=== PATIENT | female | born 1970 | race Caucasian/White ===

== ENCOUNTER 2025-01-11 23:19 | Emergency (ER) | payer OTHER ==
[~2025-01-11] VITALS: Ht 162.5 cm; Wt 91.6 kg
[2025-01-11] MEDS ORDERED: CETIRIZINE HYDR10 MG PO (23:50)
[2025-01-11] MEDS ORDERED: MONTELUKAST SOD10 MG PO (23:50)
[2025-01-12] MEDS ORDERED: SODIUM CHLORIDE 0.9% 1,000 ML IV ONE ×2 (00:25→05:30)
[2025-01-12 00:53] LABS: MEAN CELL VOLUME 87.4 fl (81.0-99.0); MEAN CORPUSCULAR HGB 28.3 pg (27.0-31.0); MEAN PLATELET VOLUME 13.3 fl (9.6-12.3); NUCLEATED RED BLOOD CELL 0.0 % (0.0-0.0); NUCLEATED RED BLOOD CELL 0.0 10*3/uL (0.0-0.0); PLATELET COUNT AUTOMATED 171 10*3/uL (130-400); RED CELL DISTRI WIDTH 14.8 % (0-14.5)
[2025-01-12] MEDS ORDERED: Ondansetron Hydrochloride 4 MG/2 ML VIAL IV ONE (00:55)
[2025-01-12 01:10] LABS: BUN 15 mg/dl (9-23)
[2025-01-12 01:13] LABS: MANUAL DIFF REFLEX YES
[2025-01-12 01:15] LABS: PLATELET SUFFICIENCY NORMAL (NORMAL)
[2025-01-12 01:20] LABS: BILIRUBIN 1+ (Negative); BLOOD 2+ (Negative); CLARITY Cloudy (Clear); COLOR Dark Yellow (Yellow); KETONE 2+ (Negative); LEUKO ESTERASE Trace (Negative); NITRITE Negative (Negative); PH 5.0 (4.5-8.0); SPECIFIC GRAVITY >= 1.030 (1.001-1.030); UROBILINOGEN 1.0 E.U./dl (0.0-1.0)
[2025-01-12] MEDS ORDERED: POTASSIUM CHLORIDE 20 MEQ TAB PO ONE (01:25)
[2025-01-12 01:28] LABS: BACTERIA 1+; EPITHELIAL CELLS 41-50; RBC 31-40 rbc/hpf (0-2)
[2025-01-12 01:29] LABS: CALCIUM OXALATE CRYSTALS 2+
[2025-01-12] MEDS ORDERED: PERCOCET 5-3251 EACH PO (08:10)
== END 2025-01-12 08:34 | disposition home or self-care (01) ==
LOC: ED 23:19
DX: N13.2 Hydronephrosis with renal and ureteral calculous obstruction (principal); R10.32 Left lower quadrant pain; M54.50 Low back pain, unspecified; E87.6 Hypokalemia; M79.662 Pain in left lower leg; M79.661 Pain in right lower leg; Z98.84 Bariatric surgery status; Z87.442 Personal history of urinary calculi; Z79.899 Other long term (current) drug therapy